=== PATIENT | male | born 1950 | race Caucasian/White ===

== ENCOUNTER 2021-04-01 13:49 | Inpatient (IN) ==
[2021-04-01] MEDS ORDERED: ONDANSETRON 4 MG/2 ML VIAL IV PRN (14:03)
[2021-04-01] MEDS ORDERED: ACETAMINOPHEN 325 MG TABLET PO PRN (14:03)
[2021-04-01] MEDS: SODIUM CHLORIDE 0.9% 1,000 ML IV SCH (17:27)
[2021-04-01] MEDS: MORPHINE 2 MG/1 ML SYRINGE IV PRN (17:27)
[2021-04-01] MEDS: PIPERACILLIN/TAZOBACTAM 3,375 MG in SODIUM CHLORIDE 0.9% 100 ML IV SCH (17:27)
[2021-04-01] MEDS: DOCUSATE SODIUM 100 MG CAPSULE PO SCH (21:59)
[2021-04-01] MEDS: ENOXAPARIN 40 MG/0.4 ML SYRINGE SUBCUT SCH (21:59)
[2021-04-02] MEDS: PIPERACILLIN/TAZOBACTAM 3,375 MG in SODIUM CHLORIDE 0.9% 100 ML IV SCH ×3 (01:29→18:07)
[2021-04-02] MEDS: MORPHINE 2 MG/1 ML SYRINGE IV PRN ×2 (01:29→18:06)
[2021-04-02 05:32] LABS: Basophils % 0.2 % (0.0-0.8); Eosinophils # 0.1 10*3/uL (0.0-0.87); Eosinophils % 0.4 % (0.00-10.9); Hematocrit 44.8 VOL% (42.0-52.0); Hemoglobin 14.6 GM/DL (14.0-18.0); Immature Granulocytes % 0.5 %; Immature Granulocytes Absolute 0.06 #; Lymphocytes # 1.3 10*3/uL (1.4-4.0); Mean Corpuscular HGB Conc 32.6 GM/DL (32-36); Mean Corpuscular Volume 88.9 FL (87-102); Mean Platelet Volume 10.4 FL (9.6-12.0); Monocytes % 9.8 % (1.7-12.7); Neutrophils % 78.1 % (38.7-73.9); Platelet Count 199 T/CUMM (130-400); Red Blood Count 5.04 MC/CUMM (3.8-5.5); Red Cell Distribution Width 14.8 % (9.3-17.3); White Blood Count 11.5 T/CUMM (4-12)
[2021-04-02 05:57] LABS: Bilirubin,Total 2.6 MG/DL (0.20-1.00); Calcium 8.6 MG/DL (8.5-10.1); Osmolality,Calculated 272.8 MOS/KG (273-304); Potassium 4.1 MMOL/L (3.5-5.1); Total Protein 6.7 G/DL (6.4-8.2)
[2021-04-02] MEDS: SODIUM CHLORIDE 0.9% 1,000 ML IV SCH ×3 (08:03→18:06)
[2021-04-02] MEDS: LOSARTAN 50 MG TABLET PO SCH (14:07)
[2021-04-02] MEDS: PANTOPRAZOLE 40 MG TABLET PO SCH (14:07)
[2021-04-02] MEDS: DOCUSATE SODIUM 100 MG CAPSULE PO SCH ×2 (14:07→20:47)
[2021-04-02] MEDS: ENOXAPARIN 40 MG/0.4 ML SYRINGE SUBCUT SCH (20:47)
[2021-04-03] MEDS: PIPERACILLIN/TAZOBACTAM 3,375 MG in SODIUM CHLORIDE 0.9% 100 ML IV SCH ×3 (01:54→16:56)
[2021-04-03] MEDS: MORPHINE 2 MG/1 ML SYRINGE IV PRN ×2 (01:55→13:09)
[2021-04-03] MEDS: SODIUM CHLORIDE 0.9% 1,000 ML IV SCH ×3 (07:54→14:35)
[2021-04-03] MEDS: LOSARTAN 50 MG TABLET PO SCH (09:21)
[2021-04-03] MEDS: DOCUSATE SODIUM 100 MG CAPSULE PO SCH ×2 (09:21→20:36)
[2021-04-03] MEDS: PANTOPRAZOLE 40 MG TABLET PO SCH (09:21)
[2021-04-03] MEDS ORDERED: VANCOMYCIN INJ 1,250 MG in SODIUM CHLORIDE 0.9% 250 ML IV SCH (11:00)
[2021-04-03] MEDS: VANCOMYCIN INJ 1,250 MG in SODIUM CHLORIDE 0.9% 250 ML IV SCH (14:30)
[2021-04-03] MEDS: ENOXAPARIN 40 MG/0.4 ML SYRINGE SUBCUT SCH (20:38)
[2021-04-04] MEDS: VANCOMYCIN INJ 1,250 MG in SODIUM CHLORIDE 0.9% 250 ML IV SCH ×2 (01:32→15:08)
[2021-04-04] MEDS: PIPERACILLIN/TAZOBACTAM 3,375 MG in SODIUM CHLORIDE 0.9% 100 ML IV SCH ×3 (02:50→18:00)
[2021-04-04] MEDS: SODIUM CHLORIDE 0.9% 1,000 ML IV SCH ×3 (02:51→18:08)
[2021-04-04 05:37] LABS: Basophils % 0.4 % (0.0-0.8); Eosinophils # 0.2 10*3/uL (0.0-0.87); Eosinophils % 2.6 % (0.00-10.9); Hematocrit 42.9 VOL% (42.0-52.0); Hemoglobin 13.9 GM/DL (14.0-18.0); Immature Granulocytes % 0.7 %; Immature Granulocytes Absolute 0.06 #; Lymphocytes # 1.3 10*3/uL (1.4-4.0); Mean Corpuscular HGB Conc 32.4 GM/DL (32-36); Mean Corpuscular Volume 90.1 FL (87-102); Mean Platelet Volume 10.5 FL (9.6-12.0); Monocytes % 14.7 % (1.7-12.7); Neutrophils % 66.6 % (38.7-73.9); Platelet Count 203 T/CUMM (130-400); Red Blood Count 4.76 MC/CUMM (3.8-5.5); Red Cell Distribution Width 14.5 % (9.3-17.3); White Blood Count 8.5 T/CUMM (4-12)
[2021-04-04] MEDS: LOSARTAN 50 MG TABLET PO SCH (09:25)
[2021-04-04] MEDS: DOCUSATE SODIUM 100 MG CAPSULE PO SCH ×2 (09:25→20:12)
[2021-04-04] MEDS: PANTOPRAZOLE 40 MG TABLET PO SCH (09:25)
[2021-04-04] MEDS: ENOXAPARIN 40 MG/0.4 ML SYRINGE SUBCUT SCH (20:12)
[2021-04-05] MEDS: PIPERACILLIN/TAZOBACTAM 3,375 MG in SODIUM CHLORIDE 0.9% 100 ML IV SCH ×3 (01:35→18:09)
[2021-04-05] MEDS: VANCOMYCIN INJ 1,250 MG in SODIUM CHLORIDE 0.9% 250 ML IV SCH ×2 (04:38→16:57)
[2021-04-05] MEDS: SODIUM CHLORIDE 0.9% 1,000 ML IV SCH ×3 (04:38→23:54)
[2021-04-05] MEDS: PANTOPRAZOLE 40 MG TABLET PO SCH (10:45)
[2021-04-05] MEDS: DOCUSATE SODIUM 100 MG CAPSULE PO SCH ×2 (10:45→21:23)
[2021-04-05] MEDS: LOSARTAN 50 MG TABLET PO SCH (10:45)
[2021-04-05] MEDS ORDERED: GLUCAGON 1 MG VIAL IM PRN (14:53)
[2021-04-05] MEDS ORDERED: DEXTROSE 50% 25 GM/50 ML SYRINGE IV PRN (14:53)
[2021-04-05] MEDS: ENOXAPARIN 40 MG/0.4 ML SYRINGE SUBCUT SCH (21:23)
[2021-04-06] MEDS: SODIUM CHLORIDE 0.9% 1,000 ML IV SCH ×2 (01:12→16:09)
[2021-04-06] MEDS: PIPERACILLIN/TAZOBACTAM 3,375 MG in SODIUM CHLORIDE 0.9% 100 ML IV SCH ×3 (01:14→09:47)
[2021-04-06] MEDS: VANCOMYCIN INJ 1,250 MG in SODIUM CHLORIDE 0.9% 250 ML IV SCH ×2 (05:40→16:08)
[2021-04-06] MEDS ORDERED: amLODIPine 10 MG TABLET PO SCH (09:00)
[2021-04-06] MEDS: LOSARTAN 50 MG TABLET PO SCH (09:46)
[2021-04-06] MEDS: PANTOPRAZOLE 40 MG TABLET PO SCH (09:47)
[2021-04-06] MEDS: DOCUSATE SODIUM 100 MG CAPSULE PO SCH (09:47)
[2021-04-06 12:51] VITALS: BP 145/62
[2021-04-06] MEDS ORDERED: ERTAPENEM 1,000 MG in SODIUM CHLORIDE 0.9% 100 ML IV ONE (14:00)
== END 2021-04-06 16:11 | disposition home health service (06) | DRG 391 ==
LOC: N.5E 14:56
PROVIDERS: ADMIT Family Medicine; ATTEND Family Medicine

== ENCOUNTER 2021-04-27 06:02 | Inpatient (IN) ==
[2021-04-23 11:13] LABS: Bacteria,Urine Occasional /HPF (Few); Bilirubin,Urine Negative (Negative); Blood, Urine Negative (Negative); Glucose,Urine (UA) Negative (Negative); Ketones,Urine Negative (Negative); Mucus,Urine Occasional /LPF (Occasional); Nitrite,Urine Negative (Negative); Protein,Urine Negative; RBC,Urine 3 /HPF (0-4); Urine Appearance CLEAR (Clear); Urine Color Yellow (Yellow); Urine Specific Gravity 1.011 (1.001-1.035); Urine Urobilinogen < 2.0 EU/DL (<2.0)
[~2021-04-27 06:02] MED LIST: ALVIMOPAN 12 MG CAPSULE PO ONE; ERTAPENEM 1,000 MG in SODIUM CHLORIDE 0.9% 100 ML IV ONE
[2021-04-27] MEDS ORDERED: FAMOTIDINE 20 MG TABLET ONE (06:21)
[2021-04-27] MEDS ORDERED: DIAZEPAM 5 MG TABLET ONE (06:21)
[2021-04-27] MEDS ORDERED: ACETAMINOPHEN 500 MG TABLET PO ONE (06:24)
[2021-04-27] MEDS ORDERED: DIAZEPAM 5 MG TABLET PO ONE (06:24)
[2021-04-27] MEDS ORDERED: FAMOTIDINE 20 MG TABLET PO ONE (06:24)
[2021-04-27] MEDS ORDERED: GABAPENTIN 400 MG CAPSULE ONE (06:24)
[2021-04-27] MEDS ORDERED: GABAPENTIN 400 MG CAPSULE PO ONE (06:24)
[2021-04-27] MEDS ORDERED: ACETAMINOPHEN 500 MG TABLET ONE (06:24)
[2021-04-27] MEDS ORDERED: fentaNYL 100 MCG/2 ML VIAL ONE ×2 (06:29→09:44)
[2021-04-27] MEDS ORDERED: MIDAZOLAM 2 MG/2 ML VIAL ONE (06:29)
[2021-04-27] MEDS ORDERED: LACTATED RINGERS 1,000 ML IV SCH (06:30)
[2021-04-27] MEDS ORDERED: LIDOCAINE 2% 5 ML VIAL ONE (06:30)
[2021-04-27] MEDS ORDERED: LACTATED RINGERS 1,000 ML IV ONE ×3 (06:30→11:44)
[2021-04-27] MEDS ORDERED: ROCURONIUM 50 MG/5 ML VIAL IV ONE ×2 (06:30→08:18)
[2021-04-27] MEDS ORDERED: propofoL 200 MG/20 ML VIAL IV ONE (06:30)
[2021-04-27] MEDS ORDERED: ONDANSETRON 4 MG/2 ML VIAL ONE (06:30)
[2021-04-27] MEDS ORDERED: SEVOFLURANE 1 UNIT/15 MINUTE INH ONE ×14 (06:30→11:03)
[2021-04-27] MEDS ORDERED: BUPIVACAINE MPF 0.25% 30 ML VIAL ONE (06:32)
[2021-04-27] MEDS ORDERED: DEXAMETHASONE 4 MG/1 ML VIAL ONE (06:32)
[2021-04-27] MEDS ORDERED: TISSUE ADHESIVE 1 EACH APPLICATOR TOP ONE (06:54)
[2021-04-27] MEDS ORDERED: INDOCYANINE GREEN 25 MG VIAL IV ONE (06:55)
[2021-04-27] MEDS ORDERED: ePHEDrine 50 MG/ML VIAL ONE (07:27)
[2021-04-27] MEDS ORDERED: NEOSTIGMINE 10 MG/10 ML VIAL ONE (08:19)
[2021-04-27] MEDS ORDERED: GLYCOPYRROLATE 0.4 MG/2 ML VIAL ONE (08:19)
[2021-04-27] MEDS ORDERED: PHENYLEPHRINE 1 MG/10 ML SYRINGE IV ONE (08:21)
[2021-04-27] MEDS ORDERED: ONDANSETRON 4 MG/2 ML VIAL IV PRN ×2 (12:24→13:14)
[2021-04-27] MEDS: HYDROmorphone 2 MG/1 ML VIAL IV PRN ×3 (12:35→12:46)
[2021-04-27] MEDS ORDERED: HYDROmorphone 2 MG/1 ML VIAL IV PRN (13:14)
[2021-04-27 14:07] LABS: Basophils % 0.2 % (0.0-0.8); Eosinophils % 0.1 % (0.00-10.9); Hematocrit 44.5 VOL% (42.0-52.0); Hemoglobin 14.6 GM/DL (14.0-18.0); Immature Granulocytes % 0.5 %; Immature Granulocytes Absolute 0.06 #; Lymphocytes # 0.6 10*3/uL (1.4-4.0); Lymphocytes % 4.6 % (21.2-54.2); Mean Corpuscular HGB Conc 32.8 GM/DL (32-36); Mean Corpuscular Volume 88.8 FL (87-102); Mean Platelet Volume 10.6 FL (9.6-12.0); Monocytes % 4.9 % (1.7-12.7); Neutrophils % 89.7 % (38.7-73.9); Platelet Count 166 T/CUMM (130-400); Red Blood Count 5.01 MC/CUMM (3.8-5.5); Red Cell Distribution Width 14.4 % (9.3-17.3); White Blood Count 12.1 T/CUMM (4-12)
[2021-04-27 14:20] LABS: Osmolality,Calculated 275.8 MOS/KG (273-304); Potassium 3.6 MMOL/L (3.5-5.1)
[2021-04-27 14:52] LABS: Band Neutrophils 5 % (0-10); Lymphocytes 4 % (20-55); Segmented Neutrophils 86 % (50-85); Total Cells Counted 100
[2021-04-27 14:53] LABS: Platelet Estimate Adequate
[2021-04-27] MEDS: KETOROLAC 30 MG/1 ML VIAL IV SCH ×2 (17:45→22:00)
[2021-04-27] MEDS: LACTATED RINGERS 1,000 ML IV SCH (17:48)
[2021-04-27] MEDS: ALVIMOPAN 12 MG CAPSULE PO SCH (22:00)
[2021-04-28] MEDS: LACTATED RINGERS 1,000 ML IV SCH ×3 (00:03→17:02)
[2021-04-28] MEDS: KETOROLAC 30 MG/1 ML VIAL IV SCH (03:08)
[2021-04-28 05:31] LABS: Basophils % 0.1 % (0.0-0.8); Hematocrit 32.6 VOL% (42.0-52.0); Hemoglobin 10.4 GM/DL (14.0-18.0); Immature Granulocytes % 0.6 %; Immature Granulocytes Absolute 0.05 #; Lymphocytes % 10.6 % (21.2-54.2); Mean Corpuscular HGB Conc 31.9 GM/DL (32-36); Mean Corpuscular Volume 90.3 FL (87-102); Mean Platelet Volume 11.9 FL (9.6-12.0); Monocytes % 15.1 % (1.7-12.7); Neutrophils % 73.6 % (38.7-73.9); Platelet Count 114 T/CUMM (130-400); Red Blood Count 3.61 MC/CUMM (3.8-5.5); Red Cell Distribution Width 14.7 % (9.3-17.3)
[2021-04-28 05:49] LABS: Calcium 8.3 MG/DL (8.5-10.1); Osmolality,Calculated 270.4 MOS/KG (273-304); Potassium 4.5 MMOL/L (3.5-5.1)
[2021-04-28 06:08] LABS: Hypochromia 1+; Microcytosis Slight
[2021-04-28] MEDS ORDERED: LACTATED RINGERS 1,000 ML IV ONE (08:29)
[2021-04-28] MEDS: ALVIMOPAN 12 MG CAPSULE PO SCH ×2 (08:58→22:56)
[2021-04-28] MEDS: amLODIPine 10 MG TABLET PO SCH (08:58)
[2021-04-28] MEDS ORDERED: ENOXAPARIN 40 MG/0.4 ML SYRINGE SUBCUT SCH (09:00)
[2021-04-28 12:13] LABS: Basophils % 0.1 % (0.0-0.8); Eosinophils # 0.1 10*3/uL (0.0-0.87); Eosinophils % 0.6 % (0.00-10.9); Hemoglobin 8.9 GM/DL (14.0-18.0); Immature Granulocytes % 0.2 %; Immature Granulocytes Absolute 0.02 #; Lymphocytes # 1.1 10*3/uL (1.4-4.0); Mean Corpuscular HGB Conc 31.8 GM/DL (32-36); Mean Platelet Volume 10.5 FL (9.6-12.0); Monocytes % 14.1 % (1.7-12.7); Red Blood Count 3.11 MC/CUMM (3.8-5.5); Red Cell Distribution Width 14.7 % (9.3-17.3)
[2021-04-28 12:17] LABS: Platelet Count 160 T/CUMM (130-400)
[2021-04-28 12:36] LABS: Calcium 8.5 MG/DL (8.5-10.1); Osmolality,Calculated 278.7 MOS/KG (273-304); Potassium 4.1 MMOL/L (3.5-5.1)
[2021-04-28] MEDS ORDERED: MAGNESIUM SULF RIDER 4 GM/100 ML PREMIX IV PRN (13:38)
[2021-04-28] MEDS ORDERED: MAGNESIUM SULF RIDER 2 GM/50 ML PREMIX IV PRN (13:38)
[2021-04-29] MEDS: LACTATED RINGERS 1,000 ML IV SCH ×2 (01:30→08:45)
[2021-04-29 06:49] LABS: Basophils % 0.4 % (0.0-0.8); Eosinophils # 0.1 10*3/uL (0.0-0.87); Eosinophils % 1.3 % (0.00-10.9); Hematocrit 21.6 VOL% (42.0-52.0); Hemoglobin 7.1 GM/DL (14.0-18.0); Immature Granulocytes % 0.4 %; Immature Granulocytes Absolute 0.03 #; Lymphocytes % 12.1 % (21.2-54.2); Mean Corpuscular HGB Conc 32.9 GM/DL (32-36); Mean Corpuscular Volume 89.3 FL (87-102); Mean Platelet Volume 11.2 FL (9.6-12.0); Neutrophils % 70.8 % (38.7-73.9); Platelet Count 126 T/CUMM (130-400); Red Blood Count 2.42 MC/CUMM (3.8-5.5); White Blood Count 8.2 T/CUMM (4-12)
[2021-04-29 07:15] LABS: Calcium 8.1 MG/DL (8.5-10.1); Osmolality,Calculated 275.8 MOS/KG (273-304); Potassium 3.9 MMOL/L (3.5-5.1)
[2021-04-29 09:52] LABS: Hemoglobin 7.2 GM/DL (14.0-18.0)
[2021-04-29] MEDS: ALVIMOPAN 12 MG CAPSULE PO SCH (10:15)
[2021-04-29] MEDS: amLODIPine 10 MG TABLET PO SCH (10:15)
[2021-04-29 12:14] VITALS: BP 126/56
== END 2021-04-29 15:45 | disposition home or self-care (01) | DRG 330 ==
LOC: N.OR 06:02 → N.SDSINP 06:04 → N.5E 13:13
PROVIDERS: ADMIT Surgery; ATTEND Surgery